=== PATIENT | male | born 1980 | race Two or more races ===

== ENCOUNTER → 2016-06-09 | Emergency (ER) | payer SELFPAY ==
[~2016-06-09] MED LIST: INSULIN REGULAR HUMAN 100 UNITS/ML *VIAL ONE; METHOCARBAMOL 500 MG TABLET ONE; METHOCARBAMOL 500 MG TABLET PO ONE; hydrALAZINE HCL 20 MG/ML VIAL IVPUSH ONE; hydrALAZINE HCL 20 MG/ML VIAL ONE
[2016-06-09 20:45] VITALS: TEMP 98.4; BMI 23.9
--- NOTE | 2016-06-09 20:46 | PDOC ---
Rapid Medical Evaluation Time Seen by Provider: 06/09/16 20:39 Medical Evaluation: Allergies Allergy/AdvReac Type Severity Reaction Status Date / Time No Known Allergies Allergy Verified 06/09/16 20:39 06/09/16 20:39 I have performed a brief in-person evaluation of this patient. The patient presents with a chief complaint of: lt shoulder/upper back pain since this am, no injury Pertinent physical exam findings: full rom, hx of htn, on no meds, 188/137 I have ordered the following: labs, urine, ekg, The patient will proceed to the ED for further evaluation.
--- NOTE | 2016-06-09 21:21 | PDOC ---
History of Present Illness - General History Source: Patient Exam Limitations: No Limitations - History of Present Illness Initial Comments: 06/09/16 21:29 The patient is a 35 year old male with significant past medical history of HTN ( use to be on norvasc 20mg, but has not been on it for a long time) and chronic pancreatitis who presents to the ED with left shoulder pain that began early this evening. Patient reports his pain is localized to posterior region of his left shoulder. He denies any trauma to the area or heavy lifting. Patient denies chest pain or radiation of the pain. No exacerbating or alleviating factors. During triage, patients bp was 200/122 and during RME patients bp is noted to be 188/137. The patient denies fever, chills, diaphoresis, lightheadedness, cough, and SOB. The patient denies abdominal pain, nausea, vomiting, and diarrhea. Allergies: NKDA Social History: Denies alcohol, tobacco, or drug use. Family History: Mother from cardiac issues Past Surgical History: appendectomy, right rotator cuff (2003) PCP: Dr. Frances Lazo <Karina Li - Last Filed: 06/09/16 21:40> - General History Source: Patient <GurvinderCal rhodes - Last Filed: 06/09/16 22:49> - General Chief Complaint: Pain, Acute Stated Complaint: SHOULDER PAIN Time Seen by Provider: 06/09/16 20:39 Past History <Karina Li - Last Filed: 06/09/16 21:40> - Past Medical History Disorders: Yes (CHRONIC PANCREATITIS.) HTN: Yes Suicide Attempt (Hx): No - Surgical History Abdominal Surgery: Yes Appendectomy: Yes Orthopedic Surgery: Yes (right rotator cuff 2003) - Immunization History Immunization Up to Date: Yes - Psycho/Social/Smoking Cessation Hx Anxiety: Yes Suicidal Ideation: No Smoking History: Current some day smoker Have you smoked in the past 12 months: Yes Number of Cigarettes Smoked Daily: 20 Information on smoking cessation initiated: No Hx Alcohol Use: No Drug/Substance Use Hx: No Substance Use Type: Alcohol, Marijuana <Cal Johnson - Last Filed: 06/09/16 22:49> - Past Medical History Allergies/Adverse Reactions: Allergies Allergy/AdvReac Type Severity Reaction Status Date / Time No Known Allergies Allergy Verified 06/09/16 20:39 Home Medications: Ambulatory Orders Amlodipine Besylate [Norvasc -] 5 mg PO DAILY 01/11/15 Azithromycin [Zithromax Z-ONEL (5 DAYS)] 250 mg PO DAILY #6 tablet 02/03/15 Amlodipine Besylate [Norvasc -] 10 mg PO DAILY #60 tablet 06/09/16 Ibuprofen [Motrin -] 600 mg PO TID #30 tablet 06/09/16 Methocarbamol [Robaxin -] 500 mg PO TID #30 tablet 06/09/16 Review of Systems - Review of Systems Able to Perform ROS?: Yes Comments:: 06/09/16 21:29 CONSTITUTIONAL: Absent: fever, no chills, no fatigue EYES: Absent: visual changes ENT: Absent: ear pain, no sore throat CARDIOVASCULAR: Absent: chest pain, no palpitations RESPIRATORY: Absent: cough, no SOB GI: Absent: abdominal pain, no nausea, no vomiting, no constipation, no diarrhea GENITOURINARY: Absent: dysuria, no frequency, no hematuria MUSKULOSKELETAL: +left shoulder pain Absent: back pain, no myalgia SKIN: Absent: rash NEURO: Absent: headache <Collin Lita - Last Filed: 06/09/16 21:40> *Physical Exam - Vital Signs Last Vital Signs Temp Pulse Resp BP Pulse Ox 98.4 F 76 20 200/122 98 06/09/16 20:40 06/09/16 20:40 06/09/16 20:40 06/09/16 20:40 06/09/16 20:40 - Physical Exam Comments: 06/09/16 21:29 GENERAL: Well-appearing, well-nourished. No apparent distress. HEENT: Normocephalic, atraumatic. PERRL, EOM intact. CARDIOVASCULAR: Normal S1, S2. Regular rate and rhythm. PULMONARY: Clear to auscultation bilaterally. ABDOMEN: Soft, non-distended, non-tender. EXTREMITIES: Normal ROM in all four extremities. No gross deformities. SKIN: Warm, dry. No rash NEUROLOGICAL: No focal neurological deficits. <Rosalie Livita - Last Filed: 06/09/16 21:40> - Vital Signs Last Vital Signs Temp Pulse Resp BP Pulse Ox 98.4 F 76 20 200/122 98 06/09/16 20:40 06/09/16 20:40 06/09/16 20:40 06/09/16 20:40 06/09/16 20:40 <Cal Johnson - Last Filed: 06/09/16 22:49> Heart Score/ECG Review - ECG Impressions Comment:: 06/09/16 21:40 NSR @72bpm Normal ECG <Karina Li - Last Filed: 06/09/16 21:40> ED Treatment Course - LABORATORY CBC & Chemistry Diagram: 06/09/16 20:50 06/09/16 20:50 <Karina Li - Last Filed: 06/09/16 21:40> - LABORATORY CBC & Chemistry Diagram: 06/09/16 20:50 06/09/16 20:50 - RADIOLOGY Radiology Studies Ordered: Category Date Time Status CHEST PA & LAT [RAD] Stat Radiology 06/09/16 21:18 Ordered <Cal Johnson - Last Filed: 06/09/16 22:49> Medical Decision Making - Medical Decision Making 06/09/16 22:43 Dr. Johnson: The scribe's documentation has been prepared under my direction and personally reviewed by me in its entirery. I confirm that the note above accurately reflects all work, treatment, procedures, and medical decision making performed by me. Patient's blood pressure now 130/80. Labs are within normal limits. We'll write Rx amlodipine that pt was originally on in the past. <Cal Johnson - Last Filed: 06/09/16 22:49> *DC/Admit/Observation/Transfer - Attestations Scribe Attestion: 06/09/16 21:29 Documentation prepared by Karina Li, acting as medical billing specialist for Cal Johnson MD <Karina Li - Last Filed: 06/09/16 21:40> - Discharge Dispostion Admit: No <Cal Johnson - Last Filed: 06/09/16 22:49> Diagnosis at time of Disposition: Hypertension Qualifiers: Hypertension type: essential hypertension Qualified Code(s): I10 - Essential ( primary) hypertension - Discharge Dispostion Disposition: HOME Condition at time of disposition: Stable - Referrals Referrals: Jackelyn Hernandez, DIET [Primary Care Provider] - - Patient Instructions Printed Discharge Instructions: High Blood Pressure
[2016-06-09 21:31] LABS: EOSINOPHIL 4.2 % (0-4.5); MCH 29.9 pg (25.7-33.7); MCHC 33.6 g/dl (32.0-35.9); MEAN PLT VOLUME 7.8 fl (7.5-11.1); NEUTROPHILS 46.6 % (42.8-82.8); PLATELET COUNT 235 K/MM3 (134-434); RDW 13.1 % (11.9-15.9); URINE APPEARANCE CLEAR; URINE BILIRUBIN NEGATIVE (NEGATIVE); URINE BLOOD NEGATIVE (NEGATIVE); URINE COLOR STRAW; URINE GLUCOSE (UA) NEGATIVE (NEGATIVE); URINE KETONE NEGATIVE (NEGATIVE); URINE LEUK ESTERASE NEGATIVE (NEGATIVE); URINE NITRITE NEGATIVE (NEGATIVE); URINE PROTEIN NEGATIVE (NEGATIVE); URINE UROBILINOGEN NEGATIVE E.U./dl (0.2-1.0); WHITE BLOOD COUNT 9.1 K/mm3 (4.0-10.0)
[2016-06-09 21:41] LABS: INR 0.97 (0.82-1.09); PROTHROMBIN TIME (PATIENT) 10.7 SEC (9.98-11.88)
[2016-06-09 21:51] LABS: ALBUMIN 4.1 g/dl (3.4-5.0); ANION GAP 9 (8-16); BILIRUBIN,TOTAL 0.6 mg/dL (0.2-1.0); CALCIUM 8.9 mg/dL (8.5-10.1); CO2 28 mmol/L (21-32); CREATININE 0.9 mg/dL (0.7-1.3); GLUCOSE,RANDOM 95 mg/dL (74-106); SGOT/AST 15 U/L (15-37); SGPT/ALT 35 U/L (12-78); TOT PROT 7.4 g/dl (6.4-8.2)
[2016-06-09 21:54] LABS: ALK PHOS 84 U/L (45-117); TROPONIN I < 0.02 ng/ml (0.00-0.05)
[2016-06-09 22:44] VITALS: BP 139/89
[2016-06-09 22:45] VITALS: PULSE 82
--- NOTE | 2016-06-10 14:15 | EKG ---
Test Reason : Blood Pressure : / mmHG Vent. Rate : 072 BPM Atrial Rate : 072 BPM P-R Int : 124 ms QRS Dur : 082 ms QT Int : 382 ms P-R-T Axes : 012 022 -02 degrees QTc Int : 418 ms NORMAL SINUS RHYTHM NORMAL ECG WHEN COMPARED WITH ECG OF 27-JUN-2014 13:37, NO SIGNIFICANT CHANGE WAS FOUND Confirmed by KEVIN RICCI MD ([id number]) on 06/10/2016 2:14:55 PM Referred By: Confirmed By:KEVIN RICCI MD
== END | disposition home or self-care (01) ==
LOC: JER 20:28
PROC: 3E033GC Introduction of Other Therapeutic Substance into Peripheral Vein, Percutaneous Approach (ICD-10-PCS; principal; 2016-06-09)
DX: I10 Essential (primary) hypertension (principal); F17.210 Nicotine dependence, cigarettes, uncomplicated
CPT/HCPCS: 36415; 71010-TC; 80053; 81003; 82550; 82553; 84484; 85025; 85610; 93005; 93010; 99282-25

== ENCOUNTER 2017-05-04 12:52 | Emergency (ER) | payer SELFPAY ==
[2017-05-04 13:22] VITALS: TEMP 102.8; BMI 23.9
[2017-05-04] MEDS ORDERED: ACETAMINOPHEN 325 MG TABLET (FP) PO ONE (13:36)
--- NOTE | 2017-05-04 13:36 | PDOC ---
History of Present Illness - General Chief Complaint: Blood Pressure Problem Stated Complaint: BLOOD PRESSURE PROBLEM Time Seen by Provider: 05/04/17 13:36 History Source: Patient Exam Limitations: No Limitations - History of Present Illness Initial Comments: 05/04/17 14:43 36-year-old gentleman hx of htn presents with fever, body aches, headache, cough , congestion since last night. Was fine yesterday during the day. Pt states he has been off his htn meds for a while due to insurance inssues. Denies any cp, vision changes, numbness/tingling/wekness, sob, rivera, leg swelling, neck stiffness or neck pain. NO recent travel or known sick contacts. social: service electrician Past History - Past Medical History Allergies/Adverse Reactions: Allergies Allergy/AdvReac Type Severity Reaction Status Date / Time No Known Allergies Allergy Verified 05/04/17 13:17 Home Medications: Ambulatory Orders Amlodipine Besylate 10 mg PO DAILY #30 tablet 05/04/17 Oseltamivir Phosphate [Tamiflu -] 75 mg PO BID #10 capsule 05/04/17 COPD: No DVT: No Disorders: Yes (CHRONIC PANCREATITIS.) HTN: Yes - Surgical History Abdominal Surgery: Yes Appendectomy: Yes Orthopedic Surgery: Yes (right rotator cuff 2004) - Immunization History Immunization Up to Date: Yes - Suicide/Smoking/Psychosocial Hx Smoking History: Never smoked Have you smoked in the past 12 months: Yes Number of Cigarettes Smoked Daily: 20 Information on smoking cessation initiated: No Hx Alcohol Use: No Drug/Substance Use Hx: No Substance Use Type: Alcohol, Marijuana Review of Systems - Review of Systems Able to Perform ROS?: Yes Comments:: 05/04/17 14:44 Constitutional - reported Fever, Chills, body aches HEENT: +nasal congestion no reported vision changes, sore throat Respiratory: + cough, no reported sob, hemoptysis Cardiac: no reported chest pain, palpitations, light headedness, leg swelling Abd/GI: no reported abd pain, nausea, vomiting, blood per rectum, melena, diarrhea : no reported dysuria, frequency, discharge Musculskelatal - no reported back pain, joint swelling skin - no reported bruising, erythema, rash neurological: no reported headache, numbness, focal weakness, tingling, ataxia, hematologic: no reported anemia, easy bruising, easy bleeding *Physical Exam - Vital Signs Last Vital Signs Temp Pulse Resp BP Pulse Ox 102.8 F H 101 H 18 150/104 98 05/04/17 13:17 05/04/17 13:17 05/04/17 13:17 05/04/17 13:17 05/04/17 13:17 - Physical Exam Comments: 05/04/17 14:45 GENERAL: The patient is awake, alert, and fully oriented, Nontoxic - in no acute distress. HEAD: Normocephalic, atraumatic. EYES: extraocular movements intact, sclera anicteric, conjunctiva clear. ENT: Normal voice, Moist mucous membranes, scant nasal congestion NECK: Normal range of motion, supple no neck stiffness, or meningeal signs LUNGS: Breath sounds equal, clear to auscultation bilaterally. No wheezes, no rhonchi, no rales. HEART: Regular rate and rhythm, normal S1 and S2 without murmur, rub or gallop. ABDOMEN: Soft, nontender, normoactive bowel sounds. No guarding, no rebound. . No CVA tenderness EXTREMITIES: Normal range of motion, no edema. No clubbing or cyanosis. No cords, erythema, or tenderness. NEUROLOGICAL: No facial assymetry, Normal speech, PSYCH: Normal mood, normal affect. SKIN: hot to touch, dry, normal turgor, Medical Decision Making - Medical Decision Making 05/04/17 14:45 Symptoms consistent with influenza Confirmed using swab Supportive management at home Will give the patient prescription of amlodipine. The patient follow-up with PMD. Return precautions were discussed I discussed the physical exam findings, ancillary test results and final diagnoses with the patient. I answered all of the patient's questions. The patient was satisfied with the care received and felt comfortable with the discharge plan and treatment plan. The patient will call their primary care physician within 24 hours to arrange follow-up and will return to the Emergency Department with any new, persistent or worsening symptoms. *DC/Admit/Observation/Transfer Diagnosis at time of Disposition: Influenza A Hypertension Qualifiers: Hypertension type: essential hypertension Qualified Code(s): I10 - Essential ( primary) hypertension - Discharge Dispostion Disposition: HOME Condition at time of disposition: Improved Admit: No - Prescriptions Prescriptions: Amlodipine Besylate 10 mg PO DAILY #30 tablet Oseltamivir Phosphate [Tamiflu -] 75 mg PO BID #10 capsule - Referrals Referrals: [facility] [Provider Group] - Patient Instructions Printed Discharge Instructions: DI for High Blood Pressure, DI for Influenza - - Adult Additional Instructions: Return to the emergency department immediately with ANY new, persistent or worsening symptoms. Take the blood pressur emedications as prescribed. Take the tamiflu as prescribed. Take tylenol/motrin as needed for your body aches/fever. Make sure to stay well hdyrated. You MUST call and follow up with your doctor within 1 week for further evaluation of your symptoms. Results were discussed with you. Please make sure your doctor reviews the results of your emergency evaluation. Print Language: SWEDISH - Post Discharge Activity Forms/Work/School Notes: Back to Work
[2017-05-04] MEDS ORDERED: ACETAMINOPHEN 325 MG TABLET (FP) ONE (13:43)
[2017-05-04 14:55] VITALS: BP 150/100; PULSE 95
== END 2017-05-04 14:57 | disposition home or self-care (01) ==
LOC: JER 12:52
DX: J09.X2 Influenza due to identified novel influenza A virus with other respiratory manifestations (principal); I10 Essential (primary) hypertension; K86.1 Other chronic pancreatitis; F17.210 Nicotine dependence, cigarettes, uncomplicated
CPT/HCPCS: 87804; 99283-25

== ENCOUNTER 2019-04-11 17:03 | Emergency (ER) | payer OTHER ==
[2019-04-11 17:07] VITALS: BP 135/98; PULSE 72; TEMP 98; BMI 23.0
--- NOTE | 2019-04-11 18:42 | PDOC ---
Suture Removal/Wound Check HPI - History of Present Illness Chief Complaint: Suture/Staple Removal (other) Stated Complaint: SUTURE REMOVAL Time Seen by Provider: 04/11/19 17:43 History Source: Yes: Patient, Sibling Treated at: Other ED ([facility]) - Previous ED Treatment Type of procedure performed on last visit: Yes: Laceration Repair Tetanus Immunization: Yes: Up to Date, Given at last ED visit Antibiotics Prescribed: No Past History - Travel Traveled outside of the country in the last 30 days: No Close contact w/someone who was outside of country & ill: No - Past Medical History Allergies/Adverse Reactions: Allergies Allergy/AdvReac Type Severity Reaction Status Date / Time No Known Allergies Allergy Verified 04/11/19 17:07 Home Medications: Ambulatory Orders Amlodipine Besylate 10 mg PO DAILY #30 tablet 05/04/17 Oseltamivir Phosphate [Tamiflu -] 75 mg PO BID #10 capsule 05/04/17 COPD: No DVT: No Disorders: Yes (CHRONIC PANCREATITIS.) HTN: Yes - Surgical History Abdominal Surgery: Yes Appendectomy: Yes Orthopedic Surgery: Yes (right rotator cuff 2004) - Immunization History Immunization Up to Date: Yes - Psycho Social/Smoking Cessation Hx Smoking History: Never smoked Have you smoked in the past 12 months: Yes Number of Cigarettes Smoked Daily: 20 Hx Alcohol Use: No Drug/Substance Use Hx: No Substance Use Type: Alcohol, Marijuana Suture Removal/Wound Check PE - Physical Exam Laceration/Wound Check Symptoms: reports: Improved Current Severity Level: None Maximum Severity Level: None Location of Laceration/Wound: right: Finger (thumb) *Review of Systems - Review of Systems Able to Perform ROS?: Yes Constitutional: No: Fever Integumentary: Yes: Other (sutures in place). No: Erythema, Pruritus, Rash Neurological: No: Numbness *Physical Exam - Vital Signs Last Vital Signs Temp Pulse Resp BP Pulse Ox 98 F 72 18 135/98 100 04/11/19 17:05 04/11/19 17:05 04/11/19 17:05 04/11/19 17:05 04/11/19 17:05 - Physical Exam General Appearance: Yes: Nourished, Appropriately Dressed. No: Apparent Distress Integumentary: positive: Normal Color, Dry, Warm, Other (4 simple interrupted sutures present in the R 1st digit, wound well approximated but not fully together.) Medical Decision Making - Medical Decision Making 04/11/19 18:40 Patient is a 38-year-old male no past medical history presents the ER with stitches in his right first finger. He had stitches placed 1 week ago at [facility]. He states that 2 popped out. He was told to return in 1 week to have stitches removed. Denies fevers, chills, purulent drainage. A/P: Wound check On exam the wound is well approximated however not fully together yet. Stitches will need a couple more days in place Patient told return on Wednesday to have the wound reevaluated Discharge home I discussed the physical exam findings, ancillary test results and final diagnoses with the patient. I answered all of the patient's questions. The patient was satisfied with the care received and felt comfortable with the discharge plan and treatment plan. The Patient agrees to follow up with the primary care physician/specialist within 24-72 hours. Return precautions were given. Discharge - Discharge Information Problems reviewed: Yes Clinical Impression/Diagnosis: Visit for wound check Condition: Stable Disposition: HOME - Admission No - Follow up/Referral Referrals: Shawn Weinberg MD [Staff Physician] - - Patient Discharge Instructions Additional Instructions: Your stitches are not ready to come out today. Please return on Wednesday for evaluation to see if the stitches are ready to come out. Keep the area clean and dry. You may wash her hands with soap and water. Do not let the water directly hit the area. Return to the ER for any new or worsening symptoms. - Post Discharge Activity Work/Back to School Note: Back to Work
== END 2019-04-11 18:53 | disposition home or self-care (01) ==
LOC: JERFT 17:03
DX: Z48.817 Encounter for surgical aftercare following surgery on the skin and subcutaneous tissue (principal)
CPT/HCPCS: 99281-25

== ENCOUNTER 2020-04-29 10:58 | Emergency (ER) | payer OTHER ==
[2020-04-29 11:22] VITALS: BMI 24.7
[2020-04-29] MEDS ORDERED: LABETALOL HCL 5 MG/1 ML (100MG/20 ML VIAL) IVPUSH ONE (11:33)
[2020-04-29] MEDS ORDERED: LABETALOL HCL 5 MG/1 ML (200MG/40ML VIAL) IVPB ONE (11:45)
[2020-04-29 12:17] LABS: CHLORIDE 101 mmol/L (98-107); POTASSIUM 4.3 mmol/L (3.5-5.1); SODIUM 135 mmol/L (136-145)
[2020-04-29 12:19] LABS: ALBUMIN 4.3 g/dl (3.4-5.0); ANION GAP 4 MMOL/L (8-16); BLOOD UREA NITROGEN 11.1 mg/dL (7-18); CALCIUM 8.8 mg/dL (8.5-10.1); CO2 30 mmol/L (21-32)
[2020-04-29 12:20] LABS: GLUCOSE,RANDOM 97 mg/dL (74-106)
[2020-04-29 12:23] LABS: CREATININE 0.9 mg/dL (0.55-1.3); SGOT/AST 58 U/L (15-37); SGPT/ALT 87 U/L (13-61)
[2020-04-29 12:24] LABS: BILIRUBIN,TOTAL 0.6 mg/dL (0.2-1); TOT PROT 8.4 g/dl (6.4-8.2)
[2020-04-29 12:25] LABS: ALK PHOS 127 U/L (45-117)
[2020-04-29 12:32] LABS: BASO % 0.4 % (0-2.0); EOS % 0.8 % (0-4.5); HEMATOCRIT 51.3 % (35.4-49); HEMOGLOBIN 17.5 GM/dL (11.7-16.9); LYMPH % 27.5 % (8-40); MCH 30.9 pg (25.7-33.7); MEAN CELL VOLUME 90.7 fl (80-96); MEAN PLT VOLUME 7.4 fl (7.5-11.1); MONO % 8.1 % (3.8-10.2); NEUT % 63.2 % (42.8-82.8); PLATELET COUNT 176 K/MM3 (134-434); RBC 5.66 M/mm3 (4.00-5.60); RDW 13.6 % (11.9-15.9); WHITE BLOOD COUNT 4.2 K/mm3 (4.0-10.0)
[2020-04-29 13:50] VITALS: BP 167/122; PULSE 90; TEMP 100.7
[2020-04-29] MEDS ORDERED: ACETAMINOPHEN 325 MG TABLET (FP) PO ONE (14:04)
[2020-04-29 14:28] LABS: EPI CELLS 11 /uL (0-25.1); HYALINE CASTS 3 /uL (0-3.1); URINE APPEARANCE CLEAR; URINE BACTERIA 45 /uL (0-1359); URINE BILIRUBIN NEGATIVE (NEGATIVE); URINE COLOR YELLOW; URINE GLUCOSE (UA) NEGATIVE (NEGATIVE); URINE KETONE TRACE (NEGATIVE); URINE LEUK ESTERASE NEGATIVE (NEGATIVE); URINE NITRITE NEGATIVE (NEGATIVE); URINE PROTEIN 1+ (NEGATIVE); URINE RBC 6 /uL (0-23.9); URINE WBC 9 /uL (0-25.8)
[2020-04-29] MEDS ORDERED: ACETAMINOPHEN 325 MG TABLET (FP) ONE (14:39)
== END 2020-04-29 15:07 | disposition home or self-care (01) ==
LOC: JER 10:58
PROC: 3E033NZ Introduction of Analgesics, Hypnotics, Sedatives into Peripheral Vein, Percutaneous Approach (ICD-10-PCS; principal; 2020-04-29)
DX: I10 Essential (primary) hypertension (principal)
CPT/HCPCS: 36415; 70450-TC; 71045-TC-FY; 80053; 81003; 82550; 83735; 84443; 84484; 85025; 93005; 93010; 99285-25; C9803; U0003